=== PATIENT | female | born 1975 | race Caucasian/White ===

== ENCOUNTER 2023-03-22 10:46 | Inpatient (IN) | payer OTHER ==
[2023-03-22] MEDS ORDERED: SODIUM CHLORIDE 0.9% 1,000 ML IV STA (11:16)
[2023-03-22] MEDS ORDERED: ONDANSETRON 4 MG/2 ML VIAL IVP STA (11:16)
[2023-03-22] MEDS ORDERED: MORPHINE SULFATE 4 MG/ML SYRINGE IVP STA (11:16)
--- NOTE | 2023-03-22 11:39 | ED ---
Skin/Abscess/FB HPI - General Chief complaint: Skin/Abscess/Foreign Body Stated complaint: Abscess Source: patient Mode of arrival: ambulatory Limitations: no limitations - History of Present Illness Initial comments: The patient's 47-year-old female is otherwise healthy presents emergency room complaints of an abscess to the buttocks. she has had a similar episode 3 years ago when she had an abscess that came to a head and then started to drain on its own. The patient states she was not seen at this time and had no issues since. Patient states that 8 days ago she started to feel pain and swelling in the area again however it has not come to ahead and is not draining. She started to develop worsening pain and fevers over the weekend. The swelling extends from the gluteal cleft all the way down the left anterior aspect of the buttocks. she is menopausal and does not get menstrual cycles anymore. MD complaint: rash - Related Data Home Medications Medication Instructions Recorded Confirmed Ibuprofen [Motrin] 600 mg PO Q8HR PRN 03/22/23 03/22/23 Allergies Allergy/AdvReac Type Severity Reaction Status Date / Time No Known Allergies Allergy Verified 03/22/23 13:40 Review of Systems ROS Statement: Those systems with pertinent positive or pertinent negative responses have been documented in the HPI. ROS Other: All systems not noted in ROS Statement are negative. Past Medical History Past Medical History: No Reported History History of Any Multi-Drug Resistant Organisms: None Reported Additional Past Surgical History / Comment(s): pilonidol cyst. Past Psychological History: No Psychological Hx Reported Smoking Status: Current every day smoker Past Alcohol Use History: Occasional Past Drug Use History: Marijuana General Exam Limitations: no limitations General appearance: alert, in no apparent distress Head exam: Present: atraumatic Eye exam: Present: normal appearance ENT exam: Present: normal exam Respiratory exam: Present: normal lung sounds bilaterally Cardiovascular Exam: Present: regular rate, tachycardia GI/Abdominal exam: Present: soft Rectal exam: Present: other (Mild erythema with induration along the right medial gluteal cleft without any well defined abscess or area of fluctuance, no drainage) Back exam: Present: full ROM Neurological exam: Present: alert, oriented X3, CN II-XII intact Psychiatric exam: Present: normal affect, normal mood Skin exam: Present: warm Course Vital Signs 03/22/23 03/22/23 10:59 13:00 Temperature 98 F Pulse Rate 133 H 91 Respiratory 18 16 Rate Blood Pressure 158/94 125/81 O2 Sat by Pulse 98 Oximetry - Reevaluation(s) Reevaluation #1: 03/22/23 6515 Discussed admission for IV antibiotics and surgical consult with the patient. At this time there is no fluctuant area to drain over the gluteal cleft. Patient has a white count of 18,000. Given the tachycardia and white count blood cultures were drawn and a lactic acid was drawn. The lactic acid was within normal limits and patient is not hypotensive therefore no sepsis alert was called today. She was started on IV Zosyn in the emergency room. I discussed patient's symptoms and workup entirely with Dr. Zhou today. The CT shows a large perirectal abscess which will need further evaluation and management at this time. Medical Decision Making - Medical Decision Making Was pt. sent in by a medical professional or institution (, PA, PARTS COUNTER ASSOCIATE, urgent care, hospital, or custodial...) When possible be specific @ -[No] Did you speak to anyone other than the patient for history (EMS, parent, family, police, friend...)? What history was obtained from this source @ -Family members at the bedside Did you review nursing and triage notes (agree or disagree)? Why? @ -[I reviewed and agree with nursing and triage notes] Were old charts reviewed (outside hosp., previous admission, EMS record, old EKG, old radiological studies, urgent care reports/EKG's, custodial records)? Report findings @ -[No old charts were reviewed] Differential Diagnosis (chest pain, altered mental status, abdominal pain women, abdominal pain men, vaginal bleeding, weakness, fever, dyspnea, syncope, headache, dizziness, GI bleed, back pain, seizure, CVA, palpatations, mental health, musculoskeletal)? @ -Pylondial cyst, perirectal abscess, perineal cellulitis EKG interpreted by me (3pts min.). @ -[As above] X-rays interpreted by me (1pt min.). @ -[None done] CT interpreted by me (1pt min.). @ -CT pelvis shows a very large periRectal abscess along the right medial gluteal cleft which will need IV antibiotics and surgical consult. U/S interpreted by me (1pt. min.). @ -[None done] What testing was considered but not performed or refused? (CT, X-rays, U/S, labs)? Why? @ -[None] What meds were considered but not given or refused? Why? @ -[None] Did you discuss the management of the patient with other professionals (professionals i.e. , PA, PARTS COUNTER ASSOCIATE, lab, RT, psych nurse, transition social worker, pens and pencils repairer, teacher, air defense artillery officer, employment evaluator/case manager)? Give summary @ -I spoke with admitting physician Dr. Preston regarding patient's admission for IV antibiotics and surgical consult for the. Rectal abscess. I also spoke with general surgeon for a surgical consult to see if this can be surgically drained per request of Dr. Preston. He wanted this surgeon consulted versus on-call surgeon. Patient will be admitted for IV antibiotics and further consultation. Was smoking cessation discussed for >3mins.? @ -[No] Was critical care preformed (if so, how long)? @ -[No] Were there social determinants of health that impacted care today? How? (H omelessness, low income, unemployed, alcoholism, drug addiction, transportation, low edu. Level, literacy, decrease access to med. care, retirement, rehab)? @ -[No] Was there de-escalation of care discussed even if they declined (Discuss DNR or withdrawal of care, Hospice)? DNR status @ -[No] What co-morbidities impacted this encounter? (DM, HTN, Smoking, COPD, CAD, Cancer, CVA, ARF, Chemo, Hep., AIDS, mental health diagnosis, sleep apnea, morbid obesity)? @ -[None] Was patient admitted / discharged? Hospital course, mention meds given and route, prescriptions, significant lab abnormalities, going to OR and other pertinent info. @ -Yesterday did speak with the patient regarding hospital admission for IV antibiotics and for surgical consult to see if this abscess can be drained in the OR versus just antibiotic management. Patient agrees with admission plan. Patient admits started on IV Zosyn emergency room and blood cultures have been drawn prior to admission. Again patient met SIRS criteria given that the white count was 18,000 and the heart rate was 133. Lactic acid visit within normal limits and she is not hypotensive and therefore no sepsis alert was called today. Patient is stable at this time. Undiagnosed new problem with uncertain prognosis? @ -Perirectal abscess Drug Therapy requiring intensive monitoring for toxicity (Heparin, Nitro, Insulin, Cardizem)? @ -[No] Were any procedures done? @ -[No] Diagnosis/symptom? @ -Perirectal abscess Acute, or Chronic, or Acute on Chronic? @ -Acute Uncomplicated (without systemic symptoms) or Complicated (systemic symptoms)? @ -complicated Side effects of treatment? @ -[No] Exacerbation, Progression, or Severe Exacerbation? @ -[No] Poses a threat to life or bodily function? How? (Chest pain, [place], [place], pneumonia, PE, COPD, DKA, ARF, appy, cholecystitis, CVA, Diverticulitis, Homicidal, Suicidal, threat to staff... and all critical care pts) @ -[No] - Lab Data Result diagrams: 03/22/23 11:03/22/23 11: Lab Results 03/22/23 03/22/23 03/22/23 Range/Units 11: 11: 11: WBC 18.1 H (3.8-10.6) k/uL RBC 4.24 (3.80-5.40) m/uL Hgb 15.1 (11.4-16.0) gm/dL Hct 44.5 (34.0-46.0) % MCV 105.1 H (80.0-100.0) fL MCH 35.6 H (25.0-35.0) pg MCHC 33.9 (31.0-37.0) g/dL RDW 11.9 (11.5-15.5) % Plt Count 239 (150-450) k/uL MPV 9.2 Neutrophils % 89 % Lymphocytes % 6 % Monocytes % 4 % Eosinophils % 0 % Basophils % 0 % Neutrophils # 16.0 H (1.3-7.7) k/uL Lymphocytes # 1.1 (1.0-4.8) k/uL Monocytes # 0.7 (0-1.0) k/uL Eosinophils # 0.1 (0-0.7) k/uL Basophils # 0.0 (0-0.2) k/uL Macrocytosis Slight PT 11.2 (10.0-12.5) sec INR 1.0 (<1.2) APTT 27.0 (22.0-30.0) sec Sodium 139 (137-145) mmol/L Potassium 3.8 (3.5-5.1) mmol/L Chloride 101 (98-107) mmol/L Carbon Dioxide 24 (22-30) mmol/L Anion Gap 14 mmol/L BUN 14 (7-17) mg/dL Creatinine 0.82 (0.52-1.04) mg/dL Est GFR (CKD-EPI)AfAm >90 (>60 ml/min/1.73 sqM) Est GFR (CKD-EPI)NonAf 87 (>60 ml/min/1.73 sqM) Glucose 101 H (74-99) mg/dL Plasma Lactic Acid Jani (0.7-2.0) mmol/L Calcium 9.7 (8.4-10.2) mg/dL Total Bilirubin 1.5 H (0.2-1.3) mg/dL AST 37 H (14-36) U/L ALT 27 (4-34) U/L Alkaline Phosphatase 162 H (38-126) U/L Total Protein 7.6 (6.3-8.2) g/dL Albumin 4.1 (3.5-5.0) g/dL Urine Color Urine Appearance (Clear) Urine pH (5.0-8.0) Ur Specific [place] (1.001-1.035) Urine Protein (Negative) Urine Glucose (UA) (Negative) Urine Ketones (Negative) Urine Blood (Negative) Urine Nitrite (Negative) Urine Bilirubin (Negative) Urine Urobilinogen (<2.0) mg/dL Ur Leukocyte Esterase (Negative) Urine RBC (0-5) /hpf Urine WBC (0-5) /hpf Ur Squamous Epith Cells (0-4) /hpf Urine Bacteria (None) /hpf Hyaline Casts (0-2) /lpf WBC Casts (0) /lpf Urine Mucus (None) /hpf 03/22/23 03/22/23 Range/Units 11:23 11:23 WBC (3.8-10.6) k/uL RBC (3.80-5.40) m/uL Hgb (11.4-16.0) gm/dL Hct (34.0-46.0) % MCV (80.0-100.0) fL MCH (25.0-35.0) pg MCHC (31.0-37.0) g/dL RDW (11.5-15.5) % Plt Count (150-450) k/uL MPV Neutrophils % % Lymphocytes % % Monocytes % % Eosinophils % % Basophils % % Neutrophils # (1.3-7.7) k/uL Lymphocytes # (1.0-4.8) k/uL Monocytes # (0-1.0) k/uL Eosinophils # (0-0.7) k/uL Basophils # (0-0.2) k/uL Macrocytosis PT (10.0-12.5) sec INR (<1.2) APTT (22.0-30.0) sec Sodium (137-145) mmol/L Potassium (3.5-5.1) mmol/L Chloride (98-107) mmol/L Carbon Dioxide (22-30) mmol/L Anion Gap mmol/L BUN (7-17) mg/dL Creatinine (0.52-1.04) mg/dL Est GFR (CKD-EPI)AfAm (>60 ml/min/1.73 sqM) Est GFR (CKD-EPI)NonAf (>60 ml/min/1.73 sqM) Glucose (74-99) mg/dL Plasma Lactic Acid Jani 1.1 (0.7-2.0) mmol/L Calcium (8.4-10.2) mg/dL Total Bilirubin (0.2-1.3) mg/dL AST (14-36) U/L ALT (4-34) U/L Alkaline Phosphatase (38-126) U/L Total Protein (6.3-8.2) g/dL Albumin (3.5-5.0) g/dL Urine Color Dark Brown Urine Appearance Turbid H (Clear) Urine pH 5.5 (5.0-8.0) Ur Specific [place] 1.030 (1.001-1.035) Urine Protein 2+ H (Negative) Urine Glucose (UA) Negative (Negative) Urine Ketones 3+ H (Negative) Urine Blood Moderate H (Negative) Urine Nitrite Negative (Negative) Urine Bilirubin 1+ H (Negative) Urine Urobilinogen >12.0 (<2.0) mg/dL Ur Leukocyte Esterase Small H (Negative) Urine RBC 3 (0-5) /hpf Urine WBC 8 H (0-5) /hpf Ur Squamous Epith Cells 30 H (0-4) /hpf Urine Bacteria Rare H (None) /hpf Hyaline Casts 7 H (0-2) /lpf WBC Casts 2 (0) /lpf Urine Mucus Many H (None) /hpf - Radiology Data Radiology results: report reviewed, image reviewed Disposition Clinical Impression: Perirectal abscess, SIRS (systemic inflammatory response syndrome) Disposition: ADMITTED IP TO THIS [facility] Condition: Fair Referrals: None,Stated [Primary Care Provider] - 1-2 days Decision to Admit Reason: Admit from EC Decision Time: 14:57
[2023-03-22 12:03] LABS: Appearance,Urine Turbid (Clear); Bacteria,Urine Rare /hpf; Bilirubin,Urine 1+ (Negative); Blood,Urine Moderate (Negative); Color,Urine Dark Brown; Glucose,Urine (UA) Negative (Negative); Hyaline Casts,Urine 7 /lpf (0-2); Ketones,Urine 3+ (Negative); Leukocyte Esterase,Urine Small (Negative); Mucus,Urine Many /hpf; Nitrite,Urine Negative (Negative); PH, Urine 5.5 (5.0-8.0); Protein,Urine 2+ (Negative); RBC,Urine 3 /hpf (0-5); Squamous Epithelial Cell,Urine 30 /hpf (0-4); Urobilinogen,Urine >12.0 mg/dL (<2.0); WBC,Urine 8 /hpf (0-5); White Blood Cell Casts,Urine 2 /lpf (0)
[2023-03-22 12:24] LABS: ALT 27 U/L (4-34); AST 37 U/L (14-36); African American GFR (CKD) >90 (>60 ml/min/1.73 sqM); Albumin 4.1 g/dL (3.5-5.0); Alkaline Phosphatase 162 U/L (38-126); Anion Gap 14 mmol/L; Blood Urea Nitrogen 14 mg/dL (7-17); Calcium 9.7 mg/dL (8.4-10.2); Carbon Dioxide 24 mmol/L (22-30); Chloride 101 mmol/L (98-107); Glucose 101 mg/dL (74-99); Non-African American GFR(CKD) 87 (>60 ml/min/1.73 sqM); Potassium 3.8 mmol/L (3.5-5.1); Sodium 139 mmol/L (137-145); Total Bilirubin 1.5 mg/dL (0.2-1.3); Total Protein 7.6 g/dL (6.3-8.2)
[2023-03-22 12:25] LABS: Basophils % (A) 0 %; Eosinophils # (A) 0.1 k/uL (0-0.7); Eosinophils % (A) 0 %; HCT 44.5 % (34.0-46.0); HGB 15.1 gm/dL (11.4-16.0); Lymphocytes # (A) 1.1 k/uL (1.0-4.8); Lymphocytes % (A) 6 %; MCH 35.6 pg (25.0-35.0); MCHC 33.9 g/dL (31.0-37.0); MCV 105.1 fL (80.0-100.0); Macrocytosis Slight; Mean Platelet Volume 9.2; Monocytes # (A) 0.7 k/uL (0-1.0); Monocytes % (A) 4 %; Neutrophils % (A) 89 %; Platelet Count 239 k/uL (150-450); RBC 4.24 m/uL (3.80-5.40); RDW 11.9 % (11.5-15.5); WBC 18.1 k/uL (3.8-10.6)
--- NOTE | 2023-03-22 12:48 | CT ---
EXAMINATION: CT SCAN OF THE PELVIS WITH INTRAVENOUS CONTRAST DATE OF EXAM: 03/22/2023 12:42 PM HISTORY: evaluate for perineal abscess COMPARISON: None. TECHNIQUE: CT examination of the pelvis was performed following the intravenous administration of iod inated contrast. CT dose lowering techniques were used, to include: automated exposure control, adjus tment for patient size, and/or use of iterative reconstruction. 100 mL of Isovue-300 was given intrav enously. FINDINGS: PELVIS: GI Tract: Normal. (Note: Small and Large bowel are only partially imaged as portions located in th e abdomen are not included with Pelvis CT) Mesentery/Peritoneum: Normal. Vasculature: Normal. Lymph Nodes: Normal. Abdominal Wall: Normal. Bladder: Normal. Reproductive: Normal. Musculoskeletal: Normal. Other: There is a large abscess within the right medial gluteal fold measuring 3.9 x 6.2 x 8.9 cm in diameter. This abuts the skin surface. This is not clearly the anal or rectal regions. IMPRESSION: 1. Large abscess in the right medial gluteal fold as above.
[2023-03-22 12:50] LABS: Prothrombin Time 11.2 sec (10.0-12.5)
[2023-03-22] MEDS ORDERED: PIPERACILLIN-TAZOBACTAM 3.375 GM in SODIUM CHLORIDE 0.9% 100 ML IVPB STA (14:31)
[2023-03-22] MEDS ORDERED: NALOXONE 0.4 MG/ML 1 ML VIAL IV PRN (14:57)
[2023-03-22] MEDS ORDERED: ONDANSETRON 4 MG/2 ML VIAL IVP PRN (14:57)
[2023-03-22] MEDS ORDERED: MORPHINE SULFATE 4 MG/ML SYRINGE IVP PRN (14:59)
[2023-03-22] MEDS ORDERED: HYDROmorphone 1 MG/ML 1 ML SYRINGE IVP STA (15:14)
--- NOTE | 2023-03-22 15:54 | P.GSCN ---
History of Present Illness Consult date: 03/22/23 History of present illness: CHIEF COMPLAINT: Right gluteal abscess HISTORY OF PRESENT ILLNESS: This is a 47-year-old female who presented to the hospital with complaints of pain, swelling and redness in the right gluteal area. Patient had a history of a pilonidal cyst about 3 years ago that drained on its own. Patient reports that about 7 days ago she noted a swelling at the top of the buttocks that continued to spread down the right gluteal. She reports she had a fever as high as 102.5 at home. She was hoping that it would drain on her own as it did previously however this one did not drain. Due to the increase in pain and fever she came into the ER for further evaluation. She did have a white count elevated at 18 and was tachycardic on admission. A c omputed tomography scan was completed and showed a large abscess in the right medial gluteal fold. Patient denies any history of diabetes. PAST MEDICAL HISTORY: Pilonidal cyst PAST SURGICAL HISTORY: none MEDICATIONS: See below ALLERGIES: See below SOCIAL HISTORY: No illicit drug use. Nicotine dependence. Occasional alcohol use. Marijuana. REVIEW OF SYSTEMS: CONSTITUTIONAL: Denies fever or chills. HEENT: Denies blurred vision, vision changes, or eye pain. Denies hemoptysis CARDIOVASCULAR: Denies chest pain or pressure. RESPIRATORY: No shortness of breath. GASTROINTESTINAL: See HPI for pertinent findings HEMATOLOGIC: Denies bleeding disorders. GENITOURINARY: Denies any blood in urine or increased urinary frequency. SKIN: Denies pruitis. Denies rash. PHYSICAL EXAM: VITAL SIGNS: Reviewed GENERAL: Well-developed in no acute distress. ABDOMEN: Soft. Nondistended. nondistended NEUROLOGIC: Alert and oriented. Cranial nerves II through XII grossly intact. Skin: Right gluteal area of induration and erythema noted along the gluteal fold LABORATORY DATA: WBC 18.1 Hgb 15.1 platelets 239 Sodium 139 potassium is 3.8 creatinine 0.82 Total bilirubin 1.5 AST 37 ALT 27 alk phos 162 IMAGING: Computed tomography scan pelvis reports a large abscess in the right medial g luteal fold ASSESSMENT: 1. Large abscess in the right medial gluteal fold 2. History of pilonidal cyst 3. Nicotine dependence PLAN: -Dr. Estrada performed a bedside incision and drainage. Cultures were obtained. About 1 cup of pus was evacuated. -Continue IV antibiotics -Continue local wound care -Consult infectious disease -Check CBC in a.m. -Discussed smoking cessation Thank you for this consultation Physician Patent Agent note has been reviewed by physician. Signing provider agrees with the documented findings, assessment, and plan of care. Past Medical History Past Medical History: No Reported History History of Any Multi-Drug Resistant Organisms: None Reported Additional Past Surgical History / Comment(s): pilonidol cyst. Past Psychological History: No Psychological Hx Reported Smoking Status: Current every day smoker Past Alcohol Use History: Occasional Past Drug Use History: Marijuana Medications and Allergies Home Medications Medication Instructions Recorded Confirmed Type Ibuprofen [Motrin] 600 mg PO Q8HR PRN 03/22/23 03/22/23 History Allergies Allergy/AdvReac Type Severity Reaction Status Date / Time No Known Allergies Allergy Verified 03/22/23 13:40 Surgical - Exam Vital Signs Temp Pulse Resp BP Pulse Ox 98 F 133 H 18 158/94 98 03/22/23 10:59 03/22/23 10:59 03/22/23 10:59 03/22/23 10:59 03/22/23 10:59 Results - Labs 03/22/23 11:23 03/22/23 11:23 Abnormal Lab Results - Last 24 Hours (Table) 03/22/23 03/22/23 03/22/23 Range/Units 11:23 11:23 11:23 WBC 18.1 H (3.8-10.6) k/uL MCV 105.1 H (80.0-100.0) fL MCH 35.6 H (25.0-35.0) pg Neutrophils # 16.0 H (1.3-7.7) k/uL Glucose 101 H (74-99) mg/dL Total Bilirubin 1.5 H (0.2-1.3) mg/dL AST 37 H (14-36) U/L Alkaline Phosphatase 162 H (38-126) U/L Urine Appearance Turbid H (Clear) Urine Protein 2+ H (Negative) Urine Ketones 3+ H (Negative) Urine Blood Moderate H (Negative) Urine Bilirubin 1+ H (Negative) Ur Leukocyte Esterase Small H (Negative) Urine WBC 8 H (0-5) /hpf Ur Squamous Epith Cells 30 H (0-4) /hpf Urine Bacteria Rare H (None) /hpf Hyaline Casts 7 H (0-2) /lpf Urine Mucus Many H (None) /hpf Diabetes panel 03/22/23 Range/Units 11:23 Sodium 139 (137-145) mmol/L Potassium 3.8 (3.5-5.1) mmol/L Chloride 101 (98-107) mmol/L Carbon Dioxide 24 (22-30) mmol/L BUN 14 (7-17) mg/dL Creatinine 0.82 (0.52-1.04) mg/dL Glucose 101 H (74-99) mg/dL Calcium 9.7 (8.4-10.2) mg/dL AST 37 H (14-36) U/L ALT 27 (4-34) U/L Alkaline Phosphatase 162 H (38-126) U/L Total Protein 7.6 (6.3-8.2) g/dL Albumin 4.1 (3.5-5.0) g/dL Calcium panel 03/22/23 Range/Units 11:23 Calcium 9.7 (8.4-10.2) mg/dL Albumin 4.1 (3.5-5.0) g/dL Pituitary panel 03/22/23 Range/Units 11:23 Sodium 139 (137-145) mmol/L Potassium 3.8 (3.5-5.1) mmol/L Chloride 101 (98-107) mmol/L Carbon Dioxide 24 (22-30) mmol/L BUN 14 (7-17) mg/dL Creatinine 0.82 (0.52-1.04) mg/dL Glucose 101 H (74-99) mg/dL Calcium 9.7 (8.4-10.2) mg/dL Adrenal panel 03/22/23 Range/Units 11:23 Sodium 139 (137-145) mmol/L Potassium 3.8 (3.5-5.1) mmol/L Chloride 101 (98-107) mmol/L Carbon Dioxide 24 (22-30) mmol/L BUN 14 (7-17) mg/dL Creatinine 0.82 (0.52-1.04) mg/dL Glucose 101 H (74-99) mg/dL Calcium 9.7 (8.4-10.2) mg/dL Total Bilirubin 1.5 H (0.2-1.3) mg/dL AST 37 H (14-36) U/L ALT 27 (4-34) U/L Alkaline Phosphatase 162 H (38-126) U/L Total Protein 7.6 (6.3-8.2) g/dL Albumin 4.1 (3.5-5.0) g/dL
[2023-03-22] MEDS: SODIUM CHLORIDE 0.9% 1,000 ML IV SCH ×2 (16:39→23:44)
--- NOTE | 2023-03-22 18:14 | HP ---
HISTORY AND PHYSICAL CHIEF COMPLAINT: Right buttock abscess. HISTORY OF PRESENT ILLNESS: This is a 47-year-old woman with a past medical history of no significant medical issues except a possible pilonidal cyst. Now, the patient is complaining of pain and swelling of the right gluteal area since 2 days before Thanksgiving. The patient had increasing pain and swelling. The patient came to [facility] and admitted for further evaluation and treatment. The patient was found to have a right gluteal abscess in the CT scan, and white count is elevated. The patient is admitted for further evaluation and treatment with Surgical and Infectious Disease evaluation. There is no history of headache, loss of consciousness, or seizures. PAST MEDICAL HISTORY: History of pilonidal cyst. Rest of the history and rest of the chart are also reviewed. HOME MEDICATIONS: Ibuprofen. ALLERGIES: None. FAMILY HISTORY: No history of heart disease or strokes in the family. SOCIAL HISTORY: Occasional alcohol, smoking, THC. REVIEW OF SYSTEMS: Fourteen-point review is negative except as mentioned earlier. PHYSICAL EXAMINATION: VITAL SIGNS: Pulse is 133, blood pressure 158/95, respirations 18. HEENT: Conjunctivae are normal. NECK: No jugular venous distention. CARDIOVASCULAR: S1 and S2 muffled. RESPIRATORY: Breath sounds diminished at the bases. ABDOMEN: Soft. LEGS: No edema. NERVOUS SYSTEM: No focal deficits. LABORATORY DATA: WBC 18.9. CAT scan reviewed. ASSESSMENT: 1. Right gluteal abscess with possible early sepsis. 2. Increased WBC. 3. History of pilonidal cyst. 4. History of THC. 5. History of nicotine dependence. RECOMMENDATIONS AND DISCUSSION: In this 47-year-old woman presented with multiple complex medical issues, we will monitor the patient closely. Recommend to continue with current medications. Infectious Disease and Surgery evaluations. DVT prophylaxis. Possible I and D, cultures, broad-spectrum antibiotics. Prognosis is guarded because of multiple complex medical issues. Further recommendations to follow. MMODL / IJN: [id number] /
[2023-03-22] MEDS: PIPERACILLIN-TAZOBACTAM 3.375 GM in SODIUM CHLORIDE 0.9% 100 ML IVPB SCH (23:42)
--- NOTE | 2023-03-23 07:49 | P.OP ---
Date of Procedure: 03/22/23 Preoperative Diagnosis: Gluteal abscess Postoperative Diagnosis: Gluteal abscess Procedure(s) Performed: Incision and drainage of gluteal abscess Anesthesia: local Surgeon: Benito Estrada Estimated Blood Loss (ml): 5 Pathology: other (Wound culture) Condition: stable Disposition: PACU Description of Procedure: The patient's placed on her back in the lateral position. Her right buttock was prepped and draped usual sterile fashion. The patient had an abscess that was along the medial area of the gluteal crease. The abscess extended from the area of her previous pilonidal cyst down to her anus. The skin was anesthetized 1% local Xylocaine. Using an 11 blade a incision was made. The abscess cavity was entered. Approximately 40 mL of pus was removed. The wound was flushed. Wet-to-dry dressing was placed in the wound. Patient tolerated the procedure well.
--- NOTE | 2023-03-23 08:56 | P.CONS ---
History of Present Illness - Reason for Consult Consult date: 03/22/23 Right gluteal abscess Requesting physician: Ashleigh Woods - Chief Complaint Right gluteal pain and swelling x few days - History of Present Illness Patient is a 47-year-old female with a past medical history began for pilonidal cyst current everyday smoker. Presenting to the hospital for evaluation of pain swelling and redness to the gluteal area, patient symptoms started few days ago with an area of induration and subsequently noticed to having increasing swelling and redness and pain patient describing the pain to be throbbing intensity moderate to severe without any radiation with associated swelling redness and some drainage did have some chills with the center the patient presented to hospital on presented to the hospital the patient was afebrile patient was tachycardic not hypotensive or hypoxic white count of 18.1 with a left shift creatinine was 0.82 urine was mildly positive patient did have a pelvis CT large abscess in the right medial gluteal fold patient was taken to the OR patient was noticed to have an abscess there was streaking from apparent pilonidal cyst tolerated to the antral area patient s/p drainage of this abscess culture has been obtained patient was started on Zosyn infectious disease was consulted for further management of antibiotic therapy Review of Systems Positive point and negatives has been mentioned in the HPI, complete review of systems was performed and all other systems are negative Past Medical History Past Medical History: No Reported History History of Any Multi-Drug Resistant Organisms: None Reported Additional Past Surgical History / Comment(s): pilonidol cyst. Smoking Status: Current every day smoker Medications and Allergies Home Medications Medication Instructions Recorded Confirmed Type Ibuprofen [Motrin] 600 mg PO Q8HR PRN 03/22/23 03/22/23 History Amoxic-Pot Clav 875-125Mg 1 tab PO Q12HR 10 Days #20 tab 03/24/23 Rx [Augmentin 875-125] Allergies Allergy/AdvReac Type Severity Reaction Status Date / Time No Known Allergies Allergy Verified 03/22/23 13:40 Physical Exam Vitals: Vital Signs Temp Pulse Pulse Resp BP BP Pulse Ox 03/22/23 20:00 98 F 90 17 120/76 96 03/22/23 17:00 98.5 F 94 16 130/77 98 03/22/23 13:00 91 16 125/81 03/22/23 10:59 98 F 133 H 18 158/94 98 Intake and Output 03/22/23 03/22/23 03/22/23 06:59 14:59 22:59 Other: Voiding Method Toilet # Voids 1 Weight 90.718 kg 90.718 kg GENERAL DESCRIPTION: Middle-aged female lying in bed, no distress. No tachypnea or accessory muscle of respiration use. HEENT: Shows Pallor , no scleral icterus. Oral mucous membrane is dry. No phary ngeal erythema or thrush NECK: Trachea central, no thyromegaly. LUNGS: Unlabored breathing. Clear to auscultation anteriorly. No wheeze or crackle. HEART: S1, S2, regular rate and rhythm. No loud murmur ABDOMEN: Soft, right gluteal wound is currently packed post surgery with some blood stained drainage EXTREMITIES: No edema of feet. SKIN: No rash, no masses palpable. NEUROLOGICAL: The patient is awake, alert, oriented x3, mood and affect normal. Results CBC & Chem 7: 03/24/23 05:46 03/24/23 05:46 Labs: Abnormal Lab Results - Last 24 Hours (Table) 03/22/23 03/22/23 03/22/23 Range/Units 11:23 11: 11:23 WBC 18.1 H (3.8-10.6) k/uL MCV 105.1 H (80.0-100.0) fL MCH 35.6 H (25.0-35.0) pg Neutrophils # 16.0 H (1.3-7.7) k/uL Glucose 101 H (74-99) mg/dL Total Bilirubin 1.5 H (0.2-1.3) mg/dL AST 37 H (14-36) U/L Alkaline Phosphatase 162 H (38-126) U/L Urine Appearance Turbid H (Clear) Urine Protein 2+ H (Negative) Urine Ketones 3+ H (Negative) Urine Blood Moderate H (Negative) Urine Bilirubin 1+ H (Negative) Ur Leukocyte Esterase Small H (Negative) Urine WBC 8 H (0-5) /hpf Ur Squamous Epith Cells 30 H (0-4) /hpf Urine Bacteria Rare H (None) /hpf Hyaline Casts 7 H (0-2) /lpf Urine Mucus Many H (None) /hpf Assessment and Plan (1) Perirectal abscess Current Visit: Yes Status: Acute Code(s): K61.1 - RECTAL ABSCESS SNOMED Code(s): 25414763 (2) Sepsis Current Visit: Yes Status: Acute Code(s): A41.9 - SEPSIS, UNSPECIFIED ORGANISM SNOMED Code(s): 70032034 Plan: 1patient with a history of pilonidal cyst spontaneous drainage no presented to hospital with sepsis in this patient with the right medial abscess that was extending all the way to her pilonidal cyst with associated tachycardia and elevated white count s/p drainage of the abscess with cultures pending likely need to cover for the enteric gram-negative pathogen 2Zosyn 3.375 g every 8 hours 3we will wait for the culture and adjust antibiotic further if needed We will follow on clinical condition and cultures to further adjust medication if needed Thank you for this consultation we will follow the patient along with you Dictation was produced using [employer] dictation software. please excuse any grammatical, word or spelling errors. Time with Patient: Greater than 30
[2023-03-23 10:00] VITALS: RESP 18
[2023-03-23] MEDS: PIPERACILLIN-TAZOBACTAM 3.375 GM in SODIUM CHLORIDE 0.9% 100 ML IVPB SCH ×2 (10:18→15:40)
[2023-03-23] MEDS: SODIUM CHLORIDE 0.9% 1,000 ML IV SCH ×2 (10:19→15:40)
[2023-03-23 11:14] LABS: HCT 39.5 % (37.2-46.3); MCH 34.6 pg (27.0-32.0); MCHC 32.9 g/dL (32.0-37.0); MCV 105.1 FL (80.0-97.0); Mean Platelet Volume 11.8 FL (9.5-12.2); NRBC Per 100 WBC 0 X 10*3/uL (0.00-0.01); Platelet Count 234 X 10*3/uL (140-440); RBC 3.76 X 10*6/uL (4.10-5.20); RDW 12.1 % (11.5-14.5); WBC 16.77 X 10*3/uL (4.50-10.00)
[2023-03-23 11:39] LABS: Basophils # (A) 0.04 X 10*3/uL (0.00-0.10); Basophils % (A) 0.2 %; Eosinophils # (A) 0.12 X 10*3/uL (0.04-0.35); Eosinophils % (A) 0.7 %; Lymphocytes # (A) 2.32 X 10*3/uL (0.90-5.00); Lymphocytes % (A) 13.8 %; Monocytes # (A) 0.78 X 10*3/uL (0.20-1.00); Monocytes % (A) 4.7 %; Neutrophils # (A) 13.45 X 10*3/uL (1.80-7.70); Neutrophils % (A) 80.2 %
[2023-03-23 11:40] LABS: Macrocytosis (M) 2+
[2023-03-23] MEDS: HYDROcodone/APAP 5-325MG 1 EACH TAB PO PRN ×2 (12:23→21:58)
--- NOTE | 2023-03-23 13:13 | P.PN ---
Subjective Progress Note Date: 03/23/23 Principal diagnosis: Reason for follow-up is right gluteal abscess Patient is a 47-year-old female with a past medical history began for pilonidal cyst current everyday smoker. Presenting to the hospital for evaluation of pain swelling and redness to the gluteal area patient has been diagnosed with the right gluteal fold abscess status post surgical drainage that was extending to a pilonidal cyst On today's evaluation that is 03/23/2023, the patient denies any fever or any chills, the patient is breathing comfortably on room air and denies any shortness of breath, the patient denies any chest pain, no cough or sputum production, patient denies nausea/vomiting /diarrhea and pain to the gluteal area controlled with the pain medication Patient white count is down to 16.77, cultures are currently pending Objective - Vital Signs Vital signs: Vital Signs Temp 97.9 F 03/23/23 06:51 Pulse 96 03/23/23 06:51 Resp 18 03/23/23 06:51 BP 107/66 03/23/23 06:51 Pulse Ox 95 03/23/23 06:51 FiO2 Intake & Output 03/22/23 03/23/23 03/23/23 18:59 06:59 18:59 Weight 90.718 kg Other: Voiding Method Toilet # Voids 1 3 - Labs CBC & Chem 7: 03/23/23 05:50 03/22/23 11:23 Labs: Abnormal Lab Results - Last 24 Hours (Table) 03/23/23 Range/Units 05:50 WBC 16.77 H (4.50-10.00) X 10*3/uL RBC 3.76 L (4.10-5.20) X 10*6/uL MCV 105.1 H (80.0-97.0) FL MCH 34.6 H (27.0-32.0) pg Neutrophils # 13.45 H (1.80-7.70) X 10*3/uL Macrocytosis (manual) 2+ A Microbiology - Last 24 Hours (Table) 03/22/23 16:38 Gram Stain - Preliminary Buttock Assessment and Plan (1) Sepsis Current Visit: Yes Status: Acute Code(s): A41.9 - SEPSIS, UNSPECIFIED ORGANISM SNOMED Code(s): 73184755 (2) Perirectal abscess Current Visit: Yes Status: Acute Code(s): K61.1 - RECTAL ABSCESS SNOMED Code(s): 80124773 Plan: 1patient with a history of pilonidal cyst spontaneous drainage no presented to hospital with sepsis in this patient with the right medial abscess that was extending all the way to her pilonidal cyst with associated tachycardia and elevated white count s/p drainage of the abscess with cultures pending likely need to cover for the enteric gram-negative pathogen 2patient will continue with Zosyn 3.375 g every 8 hours while waiting for the cultures to finalize Dictation was produced using [employer] dictation software. please excuse any grammatical, word or spelling errors. Time with Patient: Less than 30
--- NOTE | 2023-03-23 13:46 | P.PN ---
Subjective Progress Note Date: 03/23/23 CHIEF COMPLAINT: Right gluteal abscess HISTORY OF PRESENT ILLNESS: Patient postop day #1 status post incision and drainage. Patient reports her pain is controlled. She reports that the pain has improved since yesterday's procedure. She did have some mild nausea earlier that has resolved. Afebrile. WBC 18 down to 16.77 PHYSICAL EXAM: VITAL SIGNS: Reviewed. GENERAL: Well-developed in no acute distress. ABDOMEN: Soft. Nondistended. Nontender. NEUROLOGIC: Alert and oriented. Cranial nerves II through XII grossly intact. Skin: Right gluteus, erythema decreased. Area is softer with palpation. Surgical dressing with minimal blood noted. ASSESSMENT: 1. Right gluteal abscess status post incision and drainage 2. History of pilonidal cyst 3. Nicotine dependence PLAN: -Continue antibiotics per infectious disease -Continue local wound care -Continue monitor CBC Physician Facility Manager note has been reviewed by physician. Signing provider agrees with the documented findings, assessment, and plan of care. Objective - Vital Signs Vital signs: Vital Signs Temp 97.9 F 03/23/23 06:51 Pulse 96 03/23/23 06:51 Resp 18 03/23/23 06:51 BP 107/66 03/23/23 06:51 Pulse Ox 95 03/23/23 06:51 FiO2 Intake & Output 03/22/23 03/23/23 03/23/23 18:59 06:59 18:59 Weight 90.718 kg Other: Voiding Method Toilet # Voids 1 3 - Labs CBC & Chem 7: 03/23/23 05:50 03/22/23 11:23 Labs: Abnormal Lab Results - Last 24 Hours (Table) 03/22/23 03/22/23 03/22/23 Range/Units 11: 11: 11: WBC 18.1 H (3.8-10.6) k/uL MCV 105.1 H (80.0-100.0) fL MCH 35.6 H (25.0-35.0) pg Neutrophils # 16.0 H (1.3-7.7) k/uL Glucose 101 H (74-99) mg/dL Total Bilirubin 1.5 H (0.2-1.3) mg/dL AST 37 H (14-36) U/L Alkaline Phosphatase 162 H (38-126) U/L Urine Appearance Turbid H (Clear) Urine Protein 2+ H (Negative) Urine Ketones 3+ H (Negative) Urine Blood Moderate H (Negative) Urine Bilirubin 1+ H (Negative) Ur Leukocyte Esterase Small H (Negative) Urine WBC 8 H (0-5) /hpf Ur Squamous Epith Cells 30 H (0-4) /hpf Urine Bacteria Rare H (None) /hpf Hyaline Casts 7 H (0-2) /lpf Urine Mucus Many H (None) /hpf Microbiology - Last 24 Hours (Table) 03/22/23 16:38 Gram Stain - Preliminary Buttock
--- NOTE | 2023-03-23 14:26 | PN ---
PROGRESS NOTE DATE OF SERVICE: 03/23/2023 SUBJECTIVE: This is a 47-year-old woman, who was admitted with right gluteal abscess incision and drainage by Dr. Estrada, about 40 mL of pus was obtained. The cultures are pending at this time. No fever. No cough. PHYSICAL EXAMINATION: VITAL SIGNS: Pulse 96, blood pressure 107/66, respirations 18. CHEST: Clear to auscultation. CARDIOVASCULAR: S1 and S2 muffled. ABDOMEN: Soft. NERVOUS SYSTEM: Nonfocal. LABORATORY DATA: WBC 16.77. ASSESSMENT: 1. Right gluteal abscess with possible early sepsis, present on admission, status post incision and drainage. 2. Increased WBC. 3. History of pilonidal cyst. 4. History of THC. 5. History of nicotine dependence. RECOMMENDATIONS: Recommend to continue current medications. Continue symptomatic treatment. Otherwise, at this time, we will monitor the patient closely. Closely follow with Surgery and Infectious Disease. Further recommendations to follow. MMODL / IJN: [id number] /
[2023-03-24] MEDS: PIPERACILLIN-TAZOBACTAM 3.375 GM in SODIUM CHLORIDE 0.9% 100 ML IVPB SCH ×2 (00:02→10:55)
[2023-03-24] MEDS: SODIUM CHLORIDE 0.9% 1,000 ML IV SCH (00:03)
[2023-03-24 06:47] LABS: African American GFR (CKD) >90 (>60 ml/min/1.73 sqM); Anion Gap 12 mmol/L; Blood Urea Nitrogen 5 mg/dL (7-17); Calcium 8.7 mg/dL (8.4-10.2); Carbon Dioxide 20 mmol/L (22-30); Chloride 106 mmol/L (98-107); Glucose 86 mg/dL (74-99); Non-African American GFR(CKD) >90 (>60 ml/min/1.73 sqM); Potassium 3.2 mmol/L (3.5-5.1); Sodium 138 mmol/L (137-145)
[2023-03-24 08:59] VITALS: BP 133/79; PULSE 79; TEMP 98
[2023-03-24] MEDS ORDERED: AMPICILLIN-SULBACTAM 3 GM in SODIUM CHLORIDE 0.9% 100 ML IVPB SCH (13:15)
[2023-03-24 14:10] LABS: Basophils % (A) 0 %; Eosinophils # (A) 0.1 k/uL (0-0.7); Eosinophils % (A) 1 %; HGB 13.5 gm/dL (11.4-16.0); Lymphocytes # (A) 2.1 k/uL (1.0-4.8); Lymphocytes % (A) 22 %; MCH 36.2 pg (25.0-35.0); MCHC 34.5 g/dL (31.0-37.0); MCV 104.8 fL (80.0-100.0); Macrocytosis Slight; Mean Platelet Volume 11.3; Monocytes # (A) 0.4 k/uL (0-1.0); Monocytes % (A) 5 %; Neutrophils # (A) 6.5 k/uL (1.3-7.7); Neutrophils % (A) 70 %; Platelet Count 224 k/uL (150-450); RBC 3.72 m/uL (3.80-5.40); RDW 11.8 % (11.5-15.5); WBC 9.3 k/uL (3.8-10.6)
--- NOTE | 2023-03-24 15:54 | P.PN ---
Subjective Progress Note Date: 03/24/23 CHIEF COMPLAINT: Right gluteal abscess HISTORY OF PRESENT ILLNESS: Patient postop day #2 status post incision and drainage. Patient reports her pain is controlled. She denies any nausea or vomiting. Afebrile. WBC 9.3 culture is pending PHYSICAL EXAM: VITAL SIGNS: Reviewed. GENERAL: Well-developed in no acute distress. ABDOMEN: Soft. Nondistended. Nontender. NEUROLOGIC: Alert and oriented. Cranial nerves II through XII grossly intact. Skin: Right gluteus, erythema decreased. Area is softer with palpation. There is still some firmness noted at the top of the gluteal crease. The wound itself is clean and healing ASSESSMENT: 1. Right gluteal abscess status post incision and drainage 2. History of pilonidal cyst 3. Nicotine dependence PLAN: -Patient can be discharged from surgical standpoint -Discharge antibiotics per infectious disease -Continue local wound care Physician Electronics Warfare Technician note has been reviewed by physician. Signing provider agrees with the documented findings, assessment, and plan of care. Objective - Vital Signs Vital signs: Vital Signs Temp 98 F 03/24/23 08:45 Pulse 79 03/24/23 08:45 Resp 18 03/24/23 08:45 BP 133/79 03/24/23 08:45 Pulse Ox 98 03/24/23 08:45 FiO2 Intake & Output 03/23/23 03/24/23 03/24/23 18:59 06:59 18:59 Other: # Voids 3 2 # Bowel Movements 1 - Labs CBC & Chem 7: 03/24/23 05:46 03/24/23 05:46 Labs: Abnormal Lab Results - Last 24 Hours (Table) 03/23/23 03/24/23 Range/Units 05:50 05:46 Neutrophils # 13.45 H (1.80-7.70) X 10*3/uL Macrocytosis (manual) 2+ A Potassium 3.2 L (3.5-5.1) mmol/L Carbon Dioxide 20 L (22-30) mmol/L BUN 5 L (7-17) mg/dL Microbiology - Last 24 Hours (Table) 03/22/23 11:23 Blood Culture - Preliminary Blood 03/22/23 16:38 Gram Stain - Preliminary Buttock
--- NOTE | 2023-03-24 16:05 | P.PN ---
Subjective Progress Note Date: 03/24/23 Principal diagnosis: Reason for follow-up is right gluteal abscess Patient is a 47-year-old female with a past medical history began for pilonidal cyst current everyday smoker. Presenting to the hospital for evaluation of pain swelling and redness to the gluteal area patient has been diagnosed with the right gluteal fold abscess status post surgical drainage that was extending to a pilonidal cyst On today's evaluation that is 03/24/2023 the patient remains to be afebrile, the patient is breathing comfortably on room air and no need for oxygen. The patient denies shortness of breath denies any chest pain or cough, patient denies nausea/vomiting or diarrhea and no abdominal pain. The patient pain to the gluteal area has decreased in intensity Patient white count has normalized to 9.3, creatinine 0.55, cultures are currently pending Objective - Vital Signs Vital signs: Vital Signs Temp 98 F 03/24/23 08:45 Pulse 79 03/24/23 08:45 Resp 18 03/24/23 08:45 BP 133/79 03/24/23 08:45 Pulse Ox 98 03/24/23 08:45 FiO2 Intake & Output 03/23/23 03/24/23 03/24/23 18:59 06:59 18:59 Other: # Voids 3 2 # Bowel Movements 1 - Exam GENERAL DESCRIPTION: Middle-age female lying in bed in no distress RESPIRATORY SYSTEM: Unlabored breathing , clear to auscultation anteriorly HEART: S1 S2 regular rate and rhythm , ABDOMEN: Soft , no tenderness, R gluteal wound base looks clean with no redness EXTREMITIES: No edema feet - Labs CBC & Chem 7: 03/24/23 05:46 03/24/23 05:46 Labs: Abnormal Lab Results - Last 24 Hours (Table) 03/23/23 03/24/23 Range/Units 05:50 05:46 Neutrophils # 13.45 H (1.80-7.70) X 10*3/uL Macrocytosis (manual) 2+ A Potassium 3.2 L (3.5-5.1) mmol/L Carbon Dioxide 20 L (22-30) mmol/L BUN 5 L (7-17) mg/dL Microbiology - Last 24 Hours (Table) 03/22/23 11:23 Blood Culture - Preliminary Blood 03/22/23 16:38 Gram Stain - Preliminary Buttock Assessment and Plan (1) Sepsis Current Visit: Yes Status: Acute Code(s): A41.9 - SEPSIS, UNSPECIFIED ORGANISM SNOMED Code(s): 10800008 (2) Perirectal abscess Current Visit: Yes Status: Acute Code(s): K61.1 - RECTAL ABSCESS SNOMED Code(s): 81279963 Plan: 1patient with a history of pilonidal cyst spontaneous drainage no presented to hospital with sepsis in this patient with the right medial abscess that was extending all the way to her pilonidal cyst with associated tachycardia and elevated white count s/p drainage of the abscess with cultures pending likely need to cover for the enteric gram-negative pathogen 2patient has shown clinical improvement and the patient has been insisting on going home, we will switch her over to Unasyn and recommended 10 day course of oral Augmentin on discharge and close outpatient follow-up Dictation was produced using [employer] dictation software. please excuse any grammatical, word or spelling errors.
--- NOTE | 2023-03-24 16:29 | DS ---
DISCHARGE SUMMARY FINAL DIAGNOSES: 1. Right gluteal abscess with possible early sepsis, present on admission, status post incision and drainage. 2. Increased WBC. 3. History of pilonidal cyst. 4. History of nicotine dependence. 5. History of THC. DISCHARGE DISPOSITION: The patient will be discharged in stable condition with guarded prognosis. Infectious Disease cleared the patient for discharge. HISTORY OF PRESENT ILLNESS: This is a 47-year-old woman, who was admitted with right gluteal abscess, failure of outpatient treatment. The patient was treated with antibiotics. Incision and drainage was done. The patient is keen on going home. Surgery and Infectious Disease cleared the patient. The cultures are negative so far. Recommend close followup with outpatient setting and as well as follow up with Surgery and Infectious Disease. PHYSICAL EXAMINATION: VITAL SIGNS: Stable. CARDIOVASCULAR: Normal. ABDOMEN: Soft. NERVOUS SYSTEM: No focal deficits. DISCHARGE MEDICATIONS: The patient will be discharged on Augmentin for 10 days per ID recommendations. MMODL / IJN: [id number] /
== END 2023-03-24 16:26 | disposition home or self-care (01) | DRG 872 ==
LOC: EC 10:46 → 4SSUR 13:23
PROVIDERS: ADMIT Hospitalist; ATTEND Hospitalist
PROC: 0J990ZZ Drainage of Buttock Subcutaneous Tissue and Fascia, Open Approach (ICD-10-PCS; principal; 2023-03-22)
DX: A41.9 Sepsis, unspecified organism (principal); L02.31 Cutaneous abscess of buttock; K61.1 Rectal abscess; F17.210 Nicotine dependence, cigarettes, uncomplicated; Z78.0 Asymptomatic menopausal state; Z28.310 Unvaccinated for COVID-19
CPT/HCPCS: 36415; 72193; 80048; 80053; 81001; 83605; 85025; 85610; 85730; 87040; 87070; 87205; 96361; 96365; 96366; 96375; 99285